=== PATIENT | female | born 1955 | race Caucasian/White ===

== ENCOUNTER 2016-09-20 10:28 | Emergency (ER) | payer BC ==
[~2016-09-20] VITALS: Ht 167.6 cm; Wt 88.0 kg
[2016-09-20 10:39] VITALS: BP 156/81; PULSE 109; RESP 16; TEMP 99.3; O2SAT 95
[2016-09-20] MEDS ORDERED: LISI10TA3 PO (10:55)
[2016-09-20] MEDS ORDERED: OMEP20TA PO (10:55)
[2016-09-20] MEDS ORDERED: DOXY100C PO (10:55)
[2016-09-20] MEDS ORDERED: GABA300C5 PO (10:55)
[2016-09-20] MEDS ORDERED: METHI10 PO (10:55)
[2016-09-20] MEDS ORDERED: SERT25TA83 PO (10:55)
[2016-09-20] MEDS ORDERED: ZETI10TA5 PO (10:55)
[2016-09-20] MEDS ORDERED: CEPH-460 PO (10:55)
--- NOTE | 2016-09-20 11:19 | PD ---
HPI Chief Complaint: Lump, Cyst, Hernia Time Seen by Provider: 10:58 Travel History International Travel<30 days: No Contact w/Intl Traveler<30days: No Traveled to known affect area: No History of Present Illness HPI This is a 61-year-old female who has a history of breast cancer who presents to the emergency department having had tissue expanders placed last year, with a subsequent infection while she was on chemotherapy. She was on vancomycin as of one week ago but was discontinued because her trough level was too high and her infectious disease doctor transitioned her to oral Keflex and doxycycline. Patient came to visit [facility] and for the past 24 hours has had increasing redness and swelling in her left breast, constant, associated with some pink drainage from her left breast earlier this morning, with no fevers or chills. PFSH Past Medical History Hx Anticoagulant Therapy: No Anxiety: Yes Cancer: Yes (BREAST) Cardiovascular Problems: Yes (HTN) High Cholesterol: Yes Chemotherapy: Yes (09/01/16) Diabetes: No Diminished Hearing: No Hypertension: Yes Immunizations Current: Yes Thyroid Disease: Yes Tetanus Vaccination: Unknown Influenza Vaccination: No ?: Not Past Surgical History Mastectomy: Yes (LT) Social History Alcohol Use: No Tobacco Use: No Substance Use: No Allergies-Medications (Allergen,Severity, Reaction): Coded Allergies: No Known Allergies (Unverified , 09/20/16) Reported Meds & Prescriptions Reported Meds & Active Scripts Active Reported Doxycycline Hyclate 100 Mg Cap 100 Mg PO BID Keflex (Cephalexin) 500 Mg Cap 500 Mg PO Q8H Zetia (Ezetimibe) 10 Mg Tab 10 Mg PO DAILY Gabapentin 300 Mg Cap 300 Mg PO TID Omeprazole 20 Mg Tab 20 Mg PO DAILY Lisinopril 10 Mg Tab 10 Mg PO DAILY Methimazole 10 Mg Tab 10 Mg PO DAILY Sertraline (Sertraline HCl) 25 Mg Tab 50 Mg PO DAILY Review of Systems Except as stated in HPI: all other systems reviewed are Neg Physical Exam Narrative GENERAL:Well appearing, no acute distress SKIN: Warm, erythema and induration of the left breast over patient's surgical scars. HEAD: Atraumatic. Normocephalic. EYES: Pupils equal and round. No injection or drainage. ENT: Moist mucous membranes NECK: Trachea midline. CARDIOVASCULAR: Regular rate and rhythm. No murmur appreciated. RESPIRATORY: Clear to auscultation. Breath sounds equal bilaterally. GASTROINTESTINAL: Abdomen soft, non-tender, nondistended. MUSCULOSKELETAL: No obvious deformities. NEUROLOGICAL: Awake and alert. No obvious cranial nerve deficits. Moving all extremities. PSYCHIATRIC: Appropriate mood and affect; insight and judgment normal. Data Data Last Documented VS Vital Signs Date Time Temp Pulse Resp B/P Pulse Ox O2 Delivery O2 Flow Rate FiO2 09/20/16 11:58 90 18 133/52 97 Room Air 09/20/16 10:39 99.3 Orders Complete Blood Count With Diff (09/20/16 11:05) Comprehensive Metabolic Panel (09/20/16 11:05) ^ Insert Iv (09/20/16 11:05) Vancomycin Inj (Vancomycin Inj) (09/20/16 12:45) Labs Laboratory Tests Test 09/20/16 11:05 White Blood Count 6.0 TH/MM3 Red Blood Count 3.55 MIL/MM3 Hemoglobin 10.5 GM/DL Hematocrit 32.7 % Mean Corpuscular Volume 92.3 FL Mean Corpuscular Hemoglobin 29.6 PG Mean Corpuscular Hemoglobin 32.0 % Concent Red Cell Distribution Width 15.9 % Platelet Count 303 TH/MM3 Mean Platelet Volume 7.2 FL Neutrophils (%) (Auto) 67.9 % Lymphocytes (%) (Auto) 16.5 % Monocytes (%) (Auto) 13.2 % Eosinophils (%) (Auto) 1.7 % Basophils (%) (Auto) 0.7 % Neutrophils # (Auto) 4.1 TH/MM3 Lymphocytes # (Auto) 1.0 TH/MM3 Monocytes # (Auto) 0.8 TH/MM3 Eosinophils # (Auto) 0.1 TH/MM3 Basophils # (Auto) 0.0 TH/MM3 CBC Comment AUTO DIFF Differential Comment AUTO DIFF CONFIRMED Platelet Estimate NORMAL Platelet Morphology Comment NORMAL Ovalocytes 1+ Sodium Level 143 MEQ/L Potassium Level 4.5 MEQ/L Chloride Level 108 MEQ/L Carbon Dioxide Level 27.6 MEQ/L Anion Gap 7 MEQ/L Blood Urea Nitrogen 24 MG/DL Creatinine 1.00 MG/DL Estimat Glomerular Filtration 56 ML/MIN Rate Random Glucose 107 MG/DL Calcium Level 8.8 MG/DL Total Bilirubin 0.4 MG/DL Aspartate Amino Transf 15 U/L (AST/SGOT) Alanine Aminotransferase 20 U/L (ALT/SGPT) Alkaline Phosphatase 84 U/L Total Protein 7.0 GM/DL Albumin 3.3 GM/DL MDM Medical Decision Making Medical Screen Exam Complete: Yes Emergency Medical Condition: Yes Interpretation(s) temperature 99.3, mild tachycardia, hypertensive no leukocytosis anemia electrolytes within normal limits Differential Diagnosis Cellulitis, abscess, 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 She is not a candidate for surgery due to recent chemotherapy. She is being followed for this in [place]. She was just taken off of vancomycin a week ago because her trough levels were too high. Here she was placed on a monitor and an IV was established. Labs are reassuring with a normal white blood cell count. She does not appear septic at this time. I spoke to the patient's infectious disease doctor and he agreed with giving the patient 1 dose of vancomycin here and then we will coordinate for the patient to receive antibiotics through home healthcare. Patient will call his office and try to facilitate that here in [facility] and if not I told her she needs to return home as soon as possible. Diagnosis Primary Impression: Breast infection Patient Instructions: General Instructions Additional Instructions: If you develop fever, worsening pain, swelling or redness return to the emergency department. Follow-up with your infectious disease doctor as soon as possible and call them immediately to facilitate outpatient IV antibiotics. Med/Other Pt SpecificInfo: No Change to Meds Disposition: 01 DISCHARGE HOME Condition: Stable Antionette Arreola MD Sep 20, 2016 11:19
[2016-09-20 11:22] LABS: AUTOMATED NEUTROPHIL # 4.1 TH/MM3 (1.8-7.7); BASOPHIL % 0.7 % (0.0-2.0); EOSINOPHIL # 0.1 TH/MM3 (0-0.4); EOSINOPHIL % 1.7 % (0.0-4.0); HEMATOCRIT 32.7 % (35.0-46.0); LYMPH % 16.5 % (9.0-44.0); MEAN CELL VOLUME 92.3 FL (80.0-100.0); MEAN CORPUSCULAR HEMOGLOBIN 29.6 PG (27.0-34.0); MONO % 13.2 % (0.0-8.0); NEUT % 67.9 % (16.0-70.0); PLATELET COUNT 303 TH/MM3 (150-450); RED BLOOD COUNT 3.55 MIL/MM3 (4.00-5.30); RED CELL DISTRIBUTION WIDTH 15.9 % (11.6-17.2)
[2016-09-20 11:26] LABS: HEMO FLAGS AUTO DIFF
[2016-09-20 11:48] LABS: CHLORIDE 108 MEQ/L (98-107); POTASSIUM 4.5 MEQ/L (3.5-5.1); SODIUM (NA) 143 MEQ/L (136-145)
[2016-09-20 11:51] LABS: ANION GAP 7 MEQ/L (5-15); BICARBONATE 27.6 MEQ/L (21.0-32.0)
[2016-09-20 11:52] LABS: BLOOD UREA NITROGEN 24 MG/DL (7-18)
[2016-09-20 11:54] LABS: ALT (GPT) 20 U/L (10-53); AST (GOT) 15 U/L (15-37); GLOMERULAR FILTRATION RATE 56 ML/MIN (>89)
[2016-09-20 11:56] LABS: TOTAL BILIRUBIN ADULT 0.4 MG/DL (0.2-1.0)
[2016-09-20 11:57] LABS: ALKALINE PHOSPHATASE 84 U/L (45-117)
[2016-09-20 11:58] VITALS: BP 133/52; PULSE 90; RESP 18; O2SAT 97
[2016-09-20 12:24] LABS: OVALOCYTES 1+ (NORMAL); PLATELET ESTIMATE SMEAR NORMAL (NORMAL); PLATELET MORPHOLOGY NORMAL (NORMAL); SCAN/DIFF AUTO DIFF CONFIRMED
[2016-09-20] MEDS ORDERED: VANCOMYCIN INJ 1,300 MG in SODIUM CHLORID 0.9% 500 ML INJ 500 ML IV ONE (12:45)
[2016-09-20 14:10] VITALS: BP 131/57; PULSE 58; RESP 18; O2SAT 96
[2016-09-20 16:13] VITALS: BP 147/57
[2016-09-21] MEDS ORDERED: NORC5TAB PO (13:08)
== END 2016-09-20 16:15 | disposition home or self-care (01) ==
LOC: PHED 10:28
DX: N61.0 Mastitis without abscess (principal); I10 Essential (primary) hypertension
CPT/HCPCS: 80053; 85025; 96365; 96366; 99283; J3370; J7040

== ENCOUNTER 2016-09-21 11:47 | Emergency (ER) | payer BC ==
[~2016-09-21] VITALS: Ht 167.6 cm; Wt 88.0 kg
[~2016-09-21 11:47] MED LIST: CEPH-460 PO; DOXY100C PO; GABA300C5 PO; LISI10TA3 PO; METHI10 PO; OMEP20TA PO; SERT25TA83 PO; ZETI10TA5 PO
[2016-09-21 11:54] VITALS: BP 118/60; PULSE 96; RESP 18; TEMP 98.5; O2SAT 98
--- NOTE | 2016-09-21 13:05 | PD ---
HPI Chief Complaint: [employer] Problem Time Seen by Provider: 12:20 Travel History International Travel<30 days: No Contact w/Intl Traveler<30days: No Traveled to known affect area: No History of Present Illness HPI The patient is a 61-year-old female who presents to the emergency department for accessed her port for administration of vancomycin. The patient states she was diagnosed with a breast cellulitis after surgery and was prescribed vancomycin, 1 g twice a day, by her infectious disease physician is located in [place], [place]. The patient states she is currently on vacation , had vancomycin delivered to her house, and has a device that delivers the vancomycin over approximately 1-1/2 hours. However, the patient states that her accessed needle to her port came out, she presents emergency department for accessed to her port so she can administer her vancomycin. The patient is also requesting pain medications, states she ran out of pain medications and did not call her primary physician, who normally writes her medications. The patient states she is returning to [place] on Tuesday. PFSH Past Medical History Hx Anticoagulant Therapy: No Anxiety: Yes Depression: Yes Cancer: Yes (BREAST) Cardiovascular Problems: Yes (HTN) High Cholesterol: Yes Chemotherapy: Yes (09/01/16) Diabetes: No Diminished Hearing: No GERD: Yes Hypertension: Yes Implanted Vascular Access Dvce: Yes (LT CHEST) Musculoskeletal: Yes Neurologic: Yes Immunizations Current: Yes Thyroid Disease: Yes Tetanus Vaccination: > 5 Years Influenza Vaccination: Yes ?: Not Past Surgical History Mastectomy: Yes (LT) Other Surgery: Yes (IV ACCESS LT CHEST PT THINKS A PORT IS ACCESSED ALREADY) Social History Alcohol Use: No Tobacco Use: No Substance Use: No Allergies-Medications (Allergen,Severity, Reaction): Coded Allergies: No Known Allergies (Unverified , 09/20/16) Reported Meds & Prescriptions Reported Meds & Active Scripts Active Withee (Hydrocodone-Acetaminophen) 5-325 mg Tab 1 Tab PO Q6H PRN Reported Doxycycline Hyclate 100 Mg Cap 100 Mg PO BID Keflex (Cephalexin) 500 Mg Cap 500 Mg PO Q8H Zetia (Ezetimibe) 10 Mg Tab 10 Mg PO DAILY Gabapentin 300 Mg Cap 300 Mg PO TID Omeprazole 20 Mg Tab 20 Mg PO DAILY Lisinopril 10 Mg Tab 10 Mg PO DAILY Methimazole 10 Mg Tab 10 Mg PO DAILY Sertraline (Sertraline HCl) 25 Mg Tab 50 Mg PO DAILY Review of Systems Except as stated in HPI: all other systems reviewed are Neg General / Constitutional: No: Fever Cardiovascular: No: Chest Pain or Discomfort Respiratory: No: Shortness of Breath Gastrointestinal: No: Nausea, Vomiting Skin: Positive Other (left breast cellulitis, patient is receiving vancomycin twice a day) Physical Exam Narrative GENERAL: Awake, alert, nontoxic-appearing 61-year-old female who appears her stated age and is in no acute respiratory distress. SKIN: Focused skin assessment warm/dry. HEAD: Atraumatic. Normocephalic. EYES: Pupils equal and round. No injection or drainage. ENT: No nasal bleeding or discharge. Mucous membranes pink and moist. NECK: Trachea midline. No JVD. CARDIOVASCULAR: Regular rate and rhythm. No murmur appreciated. RESPIRATORY: No accessory muscle use. Clear to auscultation. Breath sounds equal bilaterally. Breast: Exam was performed in the presence of a female nurse. Patient has postoperative changes the left breast, mild induration but no drainage or significant erythema. Postoperative changes noted. GASTROINTESTINAL: Abdomen soft, non-tender, nondistended. MUSCULOSKELETAL: No obvious deformities. No clubbing. No cyanosis. No edema. NEUROLOGICAL: Awake and alert. No obvious cranial nerve deficits. Motor grossly within normal limits. Normal speech. PSYCHIATRIC: Appropriate mood and affect; insight and judgment normal. Data Data Last Documented VS Vital Signs Date Time Temp Pulse Resp B/P Pulse Ox O2 Delivery O2 Flow Rate FiO2 09/21/16 11:54 98.5 96 18 118/60 98 Orders Iv Access Insert/Monitor (09/21/16 12:34) Vancomycin Inj (Vancomycin Inj) (09/21/16 13:45) Heparin Central Flush (Heparin Central F (09/21/16 13:45) MDM Medical Decision Making Medical Screen Exam Complete: Yes Emergency Medical Condition: Yes Medical Record Reviewed: Yes Differential Diagnosis Differential diagnosis includes port access, medication administration, left breast cellulitis, chronic pain. Narrative Course The patient's port will be accessed, patient is advised to use her medication as prescribed by her infectious disease physician. She will be prescribed 12 pain medications, is advised to call her primary physician for further pain management and refills for her pain medications. Case management also evaluated the patient, we will try to arrange for the patient to have her infusions at the infusion Center as this may be a safe alternative for the patient. Nursing staff and case management attempted to have the patient's infectious disease physician fax information to the infusion center, to assess whether they would be able to administer the medications and except her insurance. In the meantime, the patient was administered 1 g of vancomycin. We will leave the patient's port where it can be accessed by her for home infusion until she is able to get into the infusion Center. Diagnosis Primary Impression: Breast infection Patient Instructions: General Instructions Additional Instructions: Continue vancomycin as previously directed. Follow-up with your infectious disease doctor and your primary physician. Return if symptoms worsen or progress. Med/Other Pt SpecificInfo: Prescription(s) given Scripts Hydrocodone-Acetaminophen ([place])5-325 mg Tab1 Tab PO Q6H PRN (PAIN) #15 TAB Ref 0 Prov:Jacques Manrique MD 09/21/16 Disposition: 01 DISCHARGE HOME Condition: Stable Jacques Manrique MD Sep 21, 2016 13:05
[2016-09-21] MEDS ORDERED: NORC5TAB PO (13:08)
[2016-09-21] MEDS ORDERED: VANCOMYCIN INJ 1,000 MG in SODIUM CHLOR 0.9% 250 ML INJ 250 ML IV ONE (13:45)
== END 2016-09-21 16:15 | disposition home or self-care (01) ==
LOC: PHED 11:47
DX: N61.0 Mastitis without abscess (principal); I10 Essential (primary) hypertension; E78.00 Pure hypercholesterolemia, unspecified; K21.9 Gastro-esophageal reflux disease without esophagitis
CPT/HCPCS: 96365; 99283; J1642; J3370; J7050